=== PATIENT | male | born 1980 | race Caucasian/White ===

== ENCOUNTER 2016-12-04 21:42 | Emergency (ER) | payer OTHER ==
[~2016-12-04] VITALS: Ht 172.7 cm; Wt 76.2 kg
[2016-12-04] MEDS ORDERED: NKM (22:10)
[2016-12-04 22:20] VITALS: BP 146/91
[2016-12-04] MEDS ORDERED: AZITHROMYCIN250 MG ORAL (22:41)
[2016-12-04] MEDS ORDERED: ALBUTEROL SULF8.5 GM INH (22:41)
[2016-12-04] MEDS ORDERED: PREDNISONE20 MG ORAL (22:41)
--- NOTE | 2016-12-04 22:41 | Emergency Room Report ---
History of Present Illness General Chief Complaint: Upper Respiratory Illness Source: Patient Present Illness HPI Is a 36-year-old male with no past medical history. He presents with chief complaint of shortness of breath and cough. About 3 weeks ago he had a flulike illness the incapacitated him for 2-3 days. He got better. Since then his been coughing. Symptom to be worsening. Worse tonight when he was laying down. He woke up with shows of breath like he can't catch his breath. He had one episode vomiting he got better. Denies any fever chills denies any nausea vomiting. Cough is nonproductive in nature. No other complaint. No chest pain. No exertional component. No diaphoresis. Allergies: Coded Allergies: No Known Allergies (Unverified , 12/04/16) Patient History Past Medical History: see triage record, old chart reviewed Past Surgical History: none Pertinent Family History: none Social History: Denies: smoking Immunizations: other Reviewed Nursing Documentation: PMH: Agreed, PSxH: Agreed Nursing Documentation-PMH Past Medical History: No Stated History Review of Systems Eye: Denies: blurred vision, eye pain ENT: Denies: ear pain, nose congestion, throat swelling Respiratory: Reports: cough, shortness of breath Cardiovascular: Denies: chest pain, palpitations Gastrointestinal: Denies: abdominal pain, diarrhea, nausea, vomiting Musculoskeletal: Denies: back pain, joint pain Skin: Denies: rash Neurological: Denies: headache, numbness Endocrine: Denies: increased thirst, increased urine Hematologic/Lymphatic: Denies: easy bruising All Other Systems: negative except mentioned in HPI Physical Exam Vital Signs Date Time Temp Pulse Resp B/P Pulse Ox O2 Delivery O2 Flow Rate FiO2 12/04/16 22:06 98.4 101 15 146/91 95 Room Air vitals normal Sp02 EP Interpretation: reviewed, normal General Appearance: well appearing, no apparent distress, alert Head: normocephalic, atraumatic Eyes: bilateral eye EOMI, bilateral eye PERRL ENT: hearing grossly normal, normal pharynx Neck: full range of motion, supple, no meningismus Respiratory: chest non-tender, lungs clear, normal breath sounds Cardiovascular #1: regular rate, rhythm, no murmur Gastrointestinal: normal bowel sounds, non tender, no mass, no organomegaly, no bruit, non-distended Musculoskeletal: back normal, gait/station normal, normal range of motion Psychiatric: mood/affect normal Skin: warm/dry Medical Decision Making Diagnostic Impression: Primary Impression: Upper respiratory infection Qualified Codes: J06.9 - Acute upper respiratory infection, unspecified; B97.89 - Other viral agents as the cause of diseases classified elsewhere Additional Impression: Bronchitis, acute, with bronchospasm ER Course Patient present with upper respiratory infection with resultant bronchospasm/ bronchitis. Because is symptom been ongoing for 3 weeks, we'll put on antibiotics. We'll also give steroid and inhaler. No evidence of sepsis, pneumonia, ACS, dissection to name a few. We'll discharge home. Chest X-Ray Diagnostic Results EP Interpretation: Yes Findings: no consolidation, no effusion, no pneumothorax, no acute cardiopulmonary disease Number of Views: 1 Last Vital Signs Date Time Temp Pulse Resp B/P Pulse Ox O2 Delivery O2 Flow Rate FiO2 12/04/16 22:06 98.4 101 15 146/91 95 Room Air Status: improved Disposition: HOME, SELF-CARE Condition: Stable Scripts Azithromycin* (ZITHROMAX*) 250 Mg Tablet 250 MG ORAL DAILY, #6 TAB 0 Refills Take two tablets by mouth today, then take one tablet by mouth daily for four days Prov: KATERINA BLACK M.D. 12/04/16 Prednisone* (PREDNISONE*) 20 Mg Tablet 60 MG ORAL DAILY, #12 TAB Prov: KATERINA BLACK M.D. 12/04/16 Albuterol Sulfate* (ALBUTEROL SULFATE MDI*) 8.5 Gm Hfa.aer.ad 2 PUFF INH Q4H Y for cough/wheezing, #1 EA 0 Refills Prov: KATERINA BLACK M.D. 12/04/16 Patient Instructions: Upper Respiratory Infection, Adult Additional Instructions: Followup with your DrMikey in 2-3 days. Return if symptom worsen. KATERINA BLACK M.D. Dec 04, 2016 22:41
[2016-12-04] MEDS ORDERED: PredniSONE 20mg tab ORAL ONE (22:45)
[2016-12-04 23:05] VITALS: BP 146/91
--- NOTE | 2016-12-05 13:19 | Diagnostic Imaging Report ---
Indication: SOB Technique: One view of the chest Comparison: none Findings: Lungs and pleural spaces are clear. Heart size is normal Impression: No acute process
== END 2016-12-04 23:05 | disposition home or self-care (01) ==
LOC: EMR 22:21
DX: J06.9 Acute upper respiratory infection, unspecified (principal); J20.9 Acute bronchitis, unspecified
CPT/HCPCS: 71010; 99284